=== PATIENT | male | born 1980 | race Caucasian/White ===

== ENCOUNTER 2017-03-06 17:42 | Emergency (ER) | payer SELFPAY ==
[~2017-03-06] VITALS: Ht 170.2 cm; Wt 53.0 kg
[2017-03-06 17:44] VITALS: TEMP 36.8; Ht 170.2 cm; Wt 53.0 kg
[2017-03-06] MEDS ORDERED: PROPARACAINE HCL 0.5% OP SOLN 15 ML BTL ONE (17:48)
[2017-03-06] MEDS ORDERED: ERYTHROMYCIN OP OINT 5 MG/GM 3.5 GM TUBE OPL ONE (18:15)
--- NOTE | 2017-03-06 18:23 | EMERGENCY ROOM VISIT NOTE ---
ED Visit Note First contact with patient: 17:50 CHIEF COMPLAINT: Eye pain HISTORY OF PRESENT ILLNESS: This 36-year-old male patient presents to the emergency department complaining of pain in the left eye after a twig flew into his eye and got caught under the eyelid. Patient states he was walking past a [place] and a branch came back and hit him in the eye. There has been a constant moderate pain and irritation, redness and tearing in the eye. There is a mild blurring of vision at times and light bothers the eye. The vision has not been decreased over all. The patient does not wear contacts. The patient rates the pain as burning and 8/10. The patient has not had previous injuries to this eye. Tetanus shot is up to date. REVIEW OF SYSTEMS: A 6 system review of systems was completed with positives and pertinent negatives listed in the HPI. ALLERGIES: See chart MEDICATIONS: See chart PMH: See chart SOCIAL HISTORY: See chart PHYSICAL EXAM: Vital Signs: Reviewed Nurse's notes, vital signs stable. Visual acuity right eye 20/20, left eye 20/20. IOP average left eye 12, right eye 13. GENERAL: This is a pleasant and cooperative gentleman, in no acute distress, but who is uncomfortable from the eye problem. Well-developed well-nourished. EYES: The pupils are equal round and reactive to light and accommodation. EOMs are full and without tenderness. There is discharge of clear tears from the left eye which is injected. There is a twig embedded under the superior left eyelid that moves with blinking, no intrusion into the globe with examination. The twig was easily removed from under the eyelid with forceps, and patient reported immediate relief of discomfort. No additional foreign body visible under the eyelid after lid eversion. Funduscopic exam reveals no hemorrhages, papilledema, or other abnormalities. No foreign body was seen embedded in the cornea under slit lamp exam. The cornea was clear and no hyphema was seen. Fluorescein uptake was observed with ultraviolet light significant for multiple corneal abrasions following a scratching pattern consistent with the presence of foreign body under the lid. EMERGENCY DEPARTMENT COURSE: I examined the patient. Foreign body was removed as discussed in the physical exam. Alcaine 2 drops were placed in the patient' s left eye. A slit lamp exam was performed as above. Patient's vision is returned to normal for the patient. Erythromycin ointment was placed in the patient's left eye with much difficulty, patient states he would prefer drops for at home. Ciloxan was provided to the patient at discharge. He was instructed to follow closely with his eye doctor. The patient was discharged home in good condition. Current/Historical Medications No Active Prescriptions or Reported Meds Allergies Coded Allergies: No Known Allergies (Unverified , 03/06/17) Vital Signs Date Time Temp Pulse Resp B/P (MAP) Pulse Ox O2 Delivery O2 Flow Rate FiO2 03/06/17 17:44 36.8 72 20 132/84 97 Room Air Medications Administered Medications (Trade) Dose Ordered Sig/[place] Route Start Time Stop Time Status Last Admin Dose Admin Proparacaine HCl (Alcaine 0.5% Oph Soln) 225 drops STK-MED ONCE .ROUTE 03/06/17 17:48 03/06/17 17:49 DC 03/06/17 17:48 225 DROPS Erythromycin (Erythromycin Oph Oint) 0.5 appln NOW ONCE OPL 03/06/17 18:15 03/06/17 18:16 DC 03/06/17 18:19 0.5 APPLN Departure Information Impression Primary Impression: Foreign body of eyelid, left Additional Impression: Corneal abrasion, left Dispostion Home / Self-Care Condition GOOD Prescriptions No Active Prescriptions or Reported Meds Patient Instructions My [facility] Additional Instructions Use the Ciloxin two drops in the left eye every two hours while awake for two days; then two drops every four hours while awake for three days. Use Ibuprofen 600 mg or Tylenol 1000 mg every 8 hrs as needed for moderate pain. Warm compresses to the left eye for comfort. Follow up with your eye doctor in 24-48 hours for a recheck. Return to the ED for increasing pain, pus drainage from the eye, or changes in vision. Problem Qualifiers Additional Impression: Corneal abrasion, left Encounter type: initial encounter Qualified Codes: S05.02XA - Injury of conjunctiva and corneal abrasion without foreign body, left eye, initial encounter
[2017-03-06] MEDS ORDERED: CIPROFLOXACIN HCL 0.3% OP SOLN 2.5 ML BTL OPL ONE (18:30)
[2017-03-06 18:39] VITALS: BP 114/86; PULSE 62; O2SAT 96
== END 2017-03-06 18:50 | disposition home or self-care (01) ==
LOC: C.EDB 17:44 → C.EDD 18:50
DX: S00.252A Superficial foreign body of left eyelid and periocular area, initial encounter (principal); S05.02XA Injury of conjunctiva and corneal abrasion without foreign body, left eye, initial encounter; X58.XXXA Exposure to other specified factors, initial encounter